=== PATIENT | male | born 1995 | race Caucasian/White ===

== ENCOUNTER 2016-10-16 18:31 | Emergency (ER) | payer OTHER ==
[~2016-10-16] VITALS: Wt 72.0 kg
[2016-10-16] MEDS ORDERED: AMOXICILLIN/CLAV 875 MG TAB PO ONE (19:00)
[2016-10-16] MEDS ORDERED: DIPHTH/TET/ACEL PERTUSS (ADULT) 0.5 ML VIAL IM* ONE (19:00)
[2016-10-16] MEDS ORDERED: ACETAMINOPHEN 325 MG TAB PO ONE (19:00)
[2016-10-16] MEDS ORDERED: AMOX1TAB10 PO (19:05)
[2016-10-16] MEDS ORDERED: IBUP-1542 PO (19:05)
--- NOTE | 2016-10-16 19:08 | ERD ---
ER Documentation Chief Complaint Date/Time DATE: 10/16/16 TIME: 19:06 Chief Complaint LEFT THIGH DOG BITE. TODAY. NO BLEEDING NOTED. 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 His puncture wounds and an abrasion on his left thigh with some slight amount of active oozing. Denies restricted range of motion weakness. His tetanus is not up-to-date. ROS All systems reviewed and are negative except as per history of present illness. Medications Home Meds Active Scripts Ibuprofen* (Motrin*) 600 Mg Tab, 600 MG PO Q6, #15 TAB Prov:MARLON MURRAY MD 10/16/16 Amoxicillin/Potassium Clav (Amox-Clav 875-125 mg Tablet) 875-125 mg Tab, 1 TAB PO BID for 7 Days, #14 TAB Prov:MARLON MURRAY MD 10/16/16 Allergies Allergies: Coded Allergies: No Known Allergy (Unverified , 10/16/16) PMhx/Soc Medical and Surgical Hx: pt denies Medical Hx, pt denies Surgical Hx Hx Alcohol Use: No Hx Substance Use: No Hx Tobacco Use: No Physical Exam Vitals Vital Signs Date Time Temp Pulse Resp B/P Pulse Ox O2 Delivery O2 Flow Rate FiO2 10/16/16 18:32 98.5 101 20 134/81 98 Physical Exam Const: [] Alert, [id number] Head: Atraumatic Eyes: Normal Conjunctiva ENT: Normal External Ears, Nose and Mouth. Neck: Full range of motion..~ No meningismus. Resp: Clear to auscultation bilaterally Cardio: Regular rate and rhythm, no murmurs Abd: Soft, non tender, non distended. Normal bowel sounds Skin: No petechiae or rashes. There are 2 puncture wounds on the left thigh with some bruising without erythema, deformities, fluctuance. Back: No midline or flank tenderness Ext: No cyanosis, or edema Neur: Awake and alert Psych: Normal Mood and Affect Results 24 hrs Current Medications Medications (Trade) Dose Ordered Sig/Jean Route PRN Reason Start Time Stop Time Status Last Admin Dose Admin Diphtheria/ Tetanus/Acell Pertussis (Adacel) 0.5 ml ONCE ONCE IM* 10/16/16 19:00 10/16/16 19:01 DC 10/16/16 18:58 Amoxicillin/ Clavulanate Potassium (Augmentin) 875 mg ONCE ONCE PO 10/16/16 19:00 10/16/16 19:01 DC 10/16/16 19:02 Acetaminophen (Tylenol Tab) 650 mg ONCE ONCE PO 10/16/16 19:00 10/16/16 19:01 DC 10/16/16 18:57 Procedures/MDM Patient was given a tetanus booster. The wounds were irrigated copiously with normal saline and a compression dressing was applied. Patient was given Tylenol for pain. Patient was given Augmentin 875 mg as well. Patient presents with dog bite left thigh without signs of infection or signs or symptoms to suggest ischemia, tendon or neurologic deficit, fracture, foreign body. Patient will be treated with Augmentin ibuprofen at home instructions for wound check in 2 days. The patient was stable with no new complaints during the ER course. Clinically, there is no current evidence to suggest meningitis, sepsis, acute abdomen, pneumonia, acute coronary syndrome, pulmonary embolism, or any other emergent condition appearing to require further evaluation or hospitalization. The patient should certainly return for any new or worsening symptoms per the aftercare instructions. They should otherwise follow-up with her primary care doctor for reevaluation this week. Departure Diagnosis: Primary Impression: Dog bite Encounter type: initial encounter Qualified Code: W54.0XXA - Dog bite, initial encounter Condition: Stable Patient Instructions: Dog Bite Additional Instructions: Wound check in 2 days, sooner for redness, fevers, new symptoms. MARLON MURRAY MD October 16, 2016 19:08
== END 2016-10-16 19:25 | disposition home or self-care (01) ==
LOC: FTE 18:31
DX: S71.152A Open bite, left thigh, initial encounter (principal); W54.0XXA Bitten by dog, initial encounter; Y92.9 Unspecified place or not applicable; Z23 Encounter for immunization
CPT/HCPCS: 90471; 90715